=== PATIENT | female | born 2000 | race Caucasian/White ===

== ENCOUNTER 2022-03-12 17:42 | Emergency (ER) | payer MEDICAID, SELFPAY ==
[2022-03-12 17:44] VITALS: BP 111/65; PULSE 80; RESP 14; TEMP 36.4; O2SAT 99; BMI 19.5
--- NOTE | 2022-03-12 18:25 | EDS_ITS ---
HPI HPI - URI History of Present Illness Chief Complaint: Ear Problem Informant: patient Narrative Narrative: Was feelPatient states that her left ear started hurting over the last day. No drainage. No change in hearing. Nothing makes better or worse. She states she recently had a middle ear infection. It was treated wrong by 1 person. She then went to ear nose and throat who treated it correctly. She was rechecked and everything was clear. She does not know when she finished antibiotics. She states that was maybe 1 week ago. It may have been 2 weeks ago. It may have been longer. Fine until today. No trauma. She does not press anything or poke anything into her ears. ROS ROS ED Constitutional Constitutional ED: Denies chills or fever(s) Eyes Eyes: Reports other Details: No pain with eye motion. No increased tearing. ; Denies blurry vision, change in vision or diplopia ENT ENT ED: Reports ear pain; Denies rhinorrhea or sore throat Cardiovascular Cardiovascular: Denies palpitations Respiratory/Chest Respiratory/Chest: Denies cough Gastrointestinal Gastrointestinal: Denies nausea or vomiting Musculoskeletal Musculoskeletal: Denies arthralgias, myalgias or neck pain Integumentary Denies rash Neurologic Neurologic: Denies headache(s) Allergic/Immunologic Allergic/Immunologic ED: Denies urticaria PFSH PFSH Medical History no medical history Home Medications ciprofloxacin 0.3 %-dexamethasone 0.1 % ear drops,suspension (Ciprodex) 4 drp EACH EAR BID 7 days #7.5 mL 03/12/22 [Rx Last Taken Unknown] Allergy/AdvReac Type Severity Reaction Status Date / Time Penicillins Allergy Hives Verified 03/12/22 17:43 Social History Smoking Status: Current every day smoker tobacco type: cigarettes EXAM Physical Exam Const Vital Signs: 03/12/22 17:44 Temperature 97.5 F L Temperature Source Temporal Pulse Rate 80 Respiratory Rate 14 Blood Pressure 111/65 Blood Pressure Mean 80 Pulse Ox 99 Oxygen Delivery Method Room Air Positive well nourished and well developed General Appearance ED: well developed and NAD HEENT Reports moist mucous membranes HEENT Narrative: No sinus tenderness. Intraoral areas are normal. No external swelling. No rashes. No vesicles. Negative Rayo sign. Mild discomfort with motion of the tragus. The canal is minimally if any swollen. I see no abscess or mass. However there does appear to be some fresh drainage and a little bit of bloody material in the canal. The eardrum itself looks intact. I do not see pe rforation. The eardrum is not at all red or inflamed. Hearing is grossly normal. Eyes EOMs intact bilaterally Resp normal respiratory effort and clear to auscultation bilaterally Cardio Rate: regular rate Neuro Sensorium / Orientation: alert Skin Skin Narrative: No skin lesions. No lesions on the face forehead or nose. MDM MDM MDM Narrative Medical decision making narrative: Patient's exam is most consistent with an otitis externa. I will write for drops. I recommend she follow-up with her ear nose and throat physician. She does not remember the name but knows how to get hold of them. Discharge Plan Triage Chief Complaint: Ear Problem ED Provider: Ronaldo Rosas Dx/Rx/DC Orders Clinical Impression: Otitis externa, left Instructions: ED External Ear Infection (Adult) Prescriptions: New ciprofloxacin-dexamethasone [Ciprodex] 0.3-0.1 % drops,suspension 4 drp EACH EAR BID 7 Days Qty: 7.5 0RF Primary Care Provider: Care Physician,No Primary Referrals: Care Physician,No Primary [Primary Care Provider] - Activity Restrictions/Additional Instructions: Follow-up with your ear nose and throat physician as soon as possible. Disposition Disposition: Home, Self Care
--- NOTE | 2022-03-12 18:41 | ED.RN ---
Patient requested pain medication and was crying and yelling at staff. offered tylenol or motrin at [place], this nurse to ask what she would prefer. Patient then called previous nurse a bitch, this RN stated this is inappropriate. patient has prescription sent to [facility] for antibiotic and was recommended to take tylenol or motrin at home.
== END 2022-03-12 18:44 | disposition home or self-care (01) ==
PROVIDERS: Emergency Provider Emergency Medicine; Visit Provider Emergency Medicine
DX: H60.92 Unspecified otitis externa, left ear (principal); F17.210 Nicotine dependence, cigarettes, uncomplicated
CPT/HCPCS: 99282